=== PATIENT | female | born 1990 | race Caucasian/White ===

== ENCOUNTER → 2017-03-12 | Outpatient (CLI) | payer OTHER ==
[~2017-03-12] VITALS: Ht 146.6 cm; Wt 65.1 kg
[~2017-03-12] MED LIST: PRENATAL TABLE1 EAC3 PO
[2017-03-12 11:02] VITALS: BP 111/58
== END | disposition home or self-care (01) ==
LOC: IVINF 10:54
DX: Z34.83 Encounter for supervision of other normal pregnancy, third trimester (principal); Z3A.28 28 weeks gestation of pregnancy; Z67.41 Type O blood, Rh negative
CPT/HCPCS: 96372; J2790

== ENCOUNTER 2017-05-20 14:18 | Outpatient (CLI) | payer OTHER ==
[~2017-05-20] VITALS: Ht 152.4 cm; Wt 70.9 kg
[2017-05-20 15:00] VITALS: BP 120/62
[2017-05-20 15:20] VITALS: BP 104/56
[2017-05-20 16:58] VITALS: BP 118/71
== END 2017-05-20 18:20 | disposition home or self-care (01) ==
LOC: LDRP-OP 14:18 → 2WEST 14:19 → LDRP-OP 07-03 09:55
DX: O9A.213 Injury, poisoning and certain other consequences of external causes complicating pregnancy, third trimester (principal); Z3A.38 38 weeks gestation of pregnancy; W10.8XXA Fall (on) (from) other stairs and steps, initial encounter; Y93.01 Activity, walking, marching and hiking; Y92.009 Unspecified place in unspecified non-institutional (private) residence as the place of occurrence of the external cause
CPT/HCPCS: 59025; 85460; G0378

== ENCOUNTER 2017-05-27 08:32 | Inpatient (IN) | payer OTHER ==
[~2017-05-27] VITALS: Ht 157.5 cm; Wt 71.4 kg
[2017-05-27] VITALS (14 sets, daily range): BP systolic 110–130; BP diastolic 57–77
[2017-05-27 10:08] LABS: BASOPHIL (%) 0.3 % (0-1); EOSINOPHIL (%) 0.9 % (0-5); EOSINOPHIL COUNT 0.1 K/uL (0-0.3); HEMATOCRIT 36.2 % (36.0-46.0); HEMOGLOBIN 12.8 G/DL (11.9-15.5); IMMATURE GRANULOCYTE (%) 0.5 % (0.0-0.7); LYMPHOCYTE COUNT 1.5 K/uL (1.0-2.8); MCH 32.8 PG (29.0-34.0); MCHC 35.4 G/DL (30.0-36.0); MCV 92.8 FL (83-99); MONOCYTE (%) 5.9 % (3-12); MONOCYTE COUNT 0.5 K/uL (0-0.8); NEUTROPHIL (%) 75.4 % (45-76); NEUTROPHIL COUNT 6.5 K/uL (1.8-6.4); PLATELET COUNT 183 K/uL (156-360); RBC DIS.WIDTH-CV 13.3 % (11.8-14.6); RBC DIS.WIDTH-SD 44.9 % (39-53); WHITE BLOOD COUNT 8.6 K/uL (4.1-10.2)
[2017-05-27 10:41] LABS: AMPHETAMINE NEGATIVE (500 ng/mL); BARBITURATES NEGATIVE (200 ng/mL); BENZODIAZEPINES NEGATIVE (150 ng/mL); BUPRENORPHINE NEGATIVE (10 ng/mL); COCAINE NEGATIVE (150 ng/mL); METHADONE NEGATIVE (200 ng/mL); METHAMPHETAMINE NEGATIVE (500 ng/mL); OPIATES (MORPHINE) NEGATIVE (100 ng/mL); OXYCODONE NEGATIVE (100 ng/mL); PHENCYCLIDINE NEGATIVE (25 ng/mL); PROPOXYPHENE NEGATIVE (300 ng/mL); THC CANNABINOIDS NEGATIVE (50 ng/mL); TRICYCLIC ANTIDEPRESSANTS NEGATIVE (300 ng/mL)
[2017-05-28] VITALS (16 sets, daily range): BP systolic 110–128; BP diastolic 56–77
[2017-05-29 00:58] VITALS: BP 114/68
[2017-05-29 02:30] VITALS: BP 114/72
[2017-05-29 04:30] VITALS: BP 98/52
[2017-05-29 06:30] VITALS: BP 116/57
[2017-05-29 07:27] LABS: BASOPHIL (%) 0.1 % (0-1); EOSINOPHIL (%) 0.1 % (0-5); HEMATOCRIT 33.2 % (36.0-46.0); HEMOGLOBIN 11.5 G/DL (11.9-15.5); IMMATURE GRANULOCYTE (%) 0.5 % (0.0-0.7); LYMPHOCYTE (%) 6.4 % (15-42); MCH 32.4 PG (29.0-34.0); MCHC 34.6 G/DL (30.0-36.0); MCV 93.5 FL (83-99); MONOCYTE (%) 3.7 % (3-12); MONOCYTE COUNT 0.6 K/uL (0-0.8); NEUTROPHIL (%) 89.2 % (45-76); NEUTROPHIL COUNT 13.8 K/uL (1.8-6.4); PLATELET COUNT 176 K/uL (156-360); RBC DIS.WIDTH-CV 13.2 % (11.8-14.6); RBC DIS.WIDTH-SD 45.1 % (39-53); RED BLOOD COUNT 3.55 M/uL (3.80-5.20); WHITE BLOOD COUNT 15.4 K/uL (4.1-10.2)
[2017-05-29] MEDS ORDERED: MOTRIN800 MG PO (10:55)
[2017-05-29] MEDS ORDERED: PERCOCET 5/31 TABLET PO (10:55)
[2017-05-29 19:20] VITALS: BP 102/57
[2017-05-29 23:00] VITALS: BP 108/55
[2017-05-30 02:30] VITALS: BP 95/51
[2017-05-30 07:30] VITALS: BP 101/67
[2017-05-30 11:15] VITALS: BP 113/66
[2017-05-30 16:01] VITALS: BP 108/68
== END 2017-05-31 13:40 | disposition home or self-care (01) | DRG 765 ==
LOC: LDRP-OP 08:32 → 2WEST 08:33 → LDRP-OP 10:21 → 2WEST 05-28 22:47 → LDRP-OP 07-03 20:46
PROVIDERS: Advanced Practice Midwife; Obstetrics & Gynecology
DX: O65.9 Obstructed labor due to maternal pelvic abnormality, unspecified (principal); O61.0 Failed medical induction of labor; O36.5930 Maternal care for other known or suspected poor fetal growth, third trimester, not applicable or unspecified; O26.893 Other specified pregnancy related conditions, third trimester; Z67.41 Type O blood, Rh negative; Z3A.39 39 weeks gestation of pregnancy; Z37.0 Single live birth
CPT/HCPCS: 83030; 85025; 86850; 86900; 86901; 88307; C1755; G0378; J0690; J1200; J2274; J2405; J2790; J7120

== ENCOUNTER 2017-06-03 22:58 | Inpatient (IN) | payer OTHER ==
[~2017-06-03] VITALS: Ht 152.4 cm; Wt 69.7 kg
[~2017-06-03 22:58] MED LIST changes: +MOTRIN800 MG PO; +PERCOCET 5/31 TABLET PO
[2017-06-03 23:34] LABS: HEMATOCRIT 33.7 % (36.0-46.0); HEMOGLOBIN 11.7 G/DL (11.9-15.5); MCHC 34.7 G/DL (30.0-36.0); MCV 92.1 FL (83-99); RBC DIS.WIDTH-CV 12.5 % (11.8-14.6); RBC DIS.WIDTH-SD 42.5 % (39-53); RED BLOOD COUNT 3.66 M/uL (3.80-5.20); WHITE BLOOD COUNT 9.7 K/uL (4.1-10.2)
[2017-06-03 23:36] LABS: PLATELET COUNT 275 K/uL (156-360)
[2017-06-03 23:44] LABS: ALBUMIN 3.2 g/dL (3.2-4.8)
[2017-06-03 23:45] LABS: CHLORIDE 107 mEq/L (99-109); POTASSIUM 3.9 mEq/L (3.7-5.4); SODIUM 139 mEq/L (136-147)
[2017-06-03 23:47] LABS: GLUCOSE 105 mg/dL (70-99); TOTAL PROTEIN 6.1 g/dL (6.4-8.3)
[2017-06-03 23:49] LABS: TOTAL BILIRUBIN 0.3 mg/dL (0.0-1.0)
[2017-06-03 23:50] LABS: ALKALINE PHOSPHATASE 118 IU/L (3-129)
[2017-06-03 23:51] LABS: CREATININE 0.8 mg/dL (0.6-1.3); GFR ESTIMATE (CALCULATED) > 59 mL/min/
[2017-06-03 23:52] LABS: AST (GOT) 13 IU/L (2-34); UREA NITROGEN (BUN) 19 mg/dL (9-23)
[2017-06-03 23:53] LABS: ALT (GPT) 22 IU/L (3-49)
[2017-06-03 23:54] LABS: LIPASE 14 U/L (1.0-51.0)
[2017-06-04 01:31] LABS: APPEARANCE CLEAR ((CLEAR)); BILIRUBIN NEGATIVE; BLOOD MODERATE; COLOR STRAW ((YELLOW)); GLUCOSE (STRIP) NEGATIVE; KETONES NEGATIVE; LEUKOCYTES TRACE; NITRITE NEGATIVE; PROTEIN (STRIP) NEGATIVE; SPECIFIC GRAVITY 1.019 (1.000-1.030); UROBILINOGEN 0.2 MG/DL (0.2-1.0)
[2017-06-04 01:35] LABS: BACTERIA NONE SEEN /HPF; EPITHELIAL CELLS RARE /HPF; MUCUS TRACE /LPF; RED BLOOD CELLS 15-20 /HPF (0-5); UCUL ADDED? YES
[2017-06-04 03:47] VITALS: BP 116/68
[2017-06-04 07:46] VITALS: BP 100/80
[2017-06-04 12:00] VITALS: BP 140/79
[2017-06-04] MEDS ORDERED: MOTRIN800 MG PO (12:55)
[2017-06-04] MEDS ORDERED: TYLENOL EXTRA500 MG PO (12:57)
[2017-06-04 15:33] VITALS: BP 124/72
[2017-06-04 19:40] VITALS: BP 140/68
[2017-06-04 23:40] VITALS: BP 131/78
[2017-06-05 03:46] VITALS: BP 135/63
[2017-06-05 07:17] LABS: HEMATOCRIT 32.2 % (36.0-46.0); HEMOGLOBIN 10.7 G/DL (11.9-15.5); MCH 31.1 PG (29.0-34.0); MCHC 33.2 G/DL (30.0-36.0); MCV 93.6 FL (83-99); PLATELET COUNT 267 K/uL (156-360); RBC DIS.WIDTH-CV 12.8 % (11.8-14.6); RBC DIS.WIDTH-SD 43.9 % (39-53); RED BLOOD COUNT 3.44 M/uL (3.80-5.20); WHITE BLOOD COUNT 8.7 K/uL (4.1-10.2)
[2017-06-05 07:51] VITALS: BP 137/61
[2017-06-05 11:51] VITALS: BP 130/61
[2017-06-05 15:52] VITALS: BP 116/64
[2017-06-05 19:35] VITALS: BP 151/65
[2017-06-06] VITALS: BP 133/82
[2017-06-06 04:00] VITALS: BP 158/75
[2017-06-06 06:47] VITALS: BP 153/85
[2017-06-06] MEDS ORDERED: AUGMENTIN875 MG PO (15:41)
[2017-06-06] MEDS ORDERED: OXYCODONE HCL5 MG PO (15:45)
[2017-06-06 15:47] VITALS: BP 120/60
[2017-06-06 19:20] VITALS: BP 125/78
== END 2017-06-06 22:11 | disposition home or self-care (01) | DRG 776 ==
LOC: EME 22:58 → EDOF 06-04 02:19 → 2EAST 06-04 02:19 → ENRESERV 06-04 02:27 → EDOF 06-04 03:02 → 2EAST 06-04 03:41
PROVIDERS: Emergency Medicine; Obstetrics & Gynecology Obstetrics
PROC: 0W9J30Z Drainage of Pelvic Cavity with Drainage Device, Percutaneous Approach (ICD-10-PCS; principal; 2017-06-06)
DX: O85 Puerperal sepsis (principal); E86.0 Dehydration
CPT/HCPCS: 71046; 74177; 80053; 81003; 83605; 83690; 83880; 85027; 87040; 87070; 87075; 87077; 87086; 87186; 87205; 99281; 99285; G0378; J2405; J2543; J3010; J7030; J7050